=== PATIENT | male | born 1985 | race Caucasian/White ===

== ENCOUNTER 2023-09-14 02:10 | Emergency (ER) | payer MEDICAID ==
[~2023-09-14] VITALS: Ht 167.6 cm; Wt 94.8 kg
[2023-09-14 02:22] VITALS: BP 132/80; PULSE 92; RESP 18; TEMP 208; TEMP 97.8; O2SAT 98
== END 2023-09-14 02:45 | disposition left against medical advice (07) ==
LOC: MED 02:10
DX: Z11.3 Encounter for screening for infections with a predominantly sexual mode of transmission (principal); Z53.21 Procedure and treatment not carried out due to patient leaving prior to being seen by health care provider